=== PATIENT | male | born 1995 | race Caucasian/White ===

== ENCOUNTER 2024-02-07 20:10 | Emergency (ER) | payer SELFPAY ==
[2024-02-07 20:12] VITALS: BP 149/92; PULSE 91; RESP 18; TEMP 36.9; O2SAT 96; BMI 31.1
--- NOTE | 2024-02-07 20:14 | HMH.EDGENADL ---
Discharge Plan Disposition Patient Disposition: Home, Self-Care Condition: Good Prescriptions Prescriptions: New ciprofloxacin HCl [Cipro] 500 mg tablet 500 mg PO BID Qty: 20 0RF metronidazole 500 mg tablet 500 mg PO BID 10 Days Qty: 20 0RF prednisone 50 mg tablet 50 mg PO DAILY 5 Days Qty: 5 0RF No Action albuterol 90 mcg/actuation Aerosol 2 mcg INHALATION Q6H PRN (Reason: Wheezing) Referrals Follow up/Referrals: Yanet Hartmann MD [Physician] - See instructions Provider,MD Samanta [Primary Care Provider] - See instructions Activity Restrictions/Add. Instructions Additional Instructions/Restrictions: Return if have any increasing signs or symptoms increasing pain fever blood per rectum. I referred you to gastroenterology. Clinical Impressions Clinical Impression: Abdominal pain, acute, Enterocolitis Stand Alone Forms Stand Alone Forms: Work/School Release Discharge ED Provider: Himanshu Caballero General Adult HPI <COBY Baird - Last Filed: 02/07/24 22:23> General Chief complaint: Abdominal Pain Stated complaint: abd pain Time Seen by Provider: 02/07/24 20:13 History of Present Illness HPI narrative: Patient presents for evaluation of abdominal pain. Patient patient reports a several month history of watery diarrhea however in the last 3 days he has had increasing pain along with nausea no vomiting and multiple loose stools per day that he describes as watery.. Patient has no specific gastrointestinal diagnoses but does have a diagnosis of eczema and asthma. He has a grandmother has a history of irritable bowel syndrome. He denies chest pain fever chills hemoptysis hematochezia melena hematemesis hematuria. Related Data Home Medications Medication Instructions Recorded Confirmed albuterol 90 mcg/actuation aerosol 2 mcg inhalation Q6H PRN Wheezing 02/07/24 02/07/24 inhaler Previous Rx's Medication Instructions Recorded ciprofloxacin HCl 500 mg tablet 500 mg PO BID #20 tabs 02/07/24 (Cipro) metronidazole 500 mg tablet 500 mg PO BID 10 days #20 tabs 02/07/24 prednisone 50 mg tablet 50 mg PO DAILY 5 days #5 tabs 02/07/24 Allergies Allergy/AdvReac Type Severity Reaction Status Date / Time egg Allergy Verified 02/07/24 20:34 PFSH <COBY Baird - Last Filed: 02/07/24 22:23> PFSH Disclaimer: The information contained in this section may have been updated after the patient was seen, as this information can be updated by other users. Social History (Updated 02/07/24 @ 22:23 by COBY Baird) Smoking Status: Former smoker alcohol intake: never current occupational status: employed Travel in the last 8 weeks: None <COBY Baird - Last Filed: 02/07/24 22:23> ROS Obtained: Yes Systems reviewed as appropriate & no additional complaints except as documented Physical Exam <COBY Baird - Last Filed: 02/07/24 22:23> General General appearance: alert and in no apparent distress Head Head exam: atraumatic and normal inspection Eye Eye exam: Present normal appearance, PERRL and EOMI ENT ENT exam: Present normal exam, normal oropharynx and mucous membranes moist Neck Neck exam: Present normal inspection, full ROM and trachea midline; Absent lymphadenopathy Chest Chest inspection: Present normal inspection and symmetric chest wall rise Respiratory Respiratory exam: Present normal lung sounds bilaterally; Absent accessory muscle use Cardiovascular Cardiovascular exam: Present regular rate, normal rhythm, normal heart sounds, +S1 and +S2 Abdominal Exam Abdominal exam: Present soft, tenderness (Diffuse nonfocal) and hyperactive bowel sounds; Absent guarding or rebound Extremities Exam Extremities exam: Present normal inspection and full ROM Neurological Exam Neurological exam: Present alert, oriented X3 and CN II-XII intact Psychiatric Psychiatric exam: Present normal affect and normal mood Skin Skin exam: Present warm, dry and normal color Lymphatic Lymphatic Findings: no adenopathy Medical Decision Making <COBY Baird - Last Filed: 02/07/24 22:23> Medical Records Medical records reviewed: Yes I reviewed the patient's medical records. Heldre Inquiry Pt receiving controlled substance: No Vital Signs: 02/07/24 20:12 02/07/24 22:36 Temperature 98.4 F 98.1 F Temperature Source Oral Oral Pulse Rate 88 Pulse Rate [Left Radial] 91 H Respiratory Rate 18 18 Blood Pressure 138/84 Blood Pressure [Right Arm] 149/92 H Blood Pressure Mean [Right Arm] 111 Blood Pressure Source [Right Arm] Automatic Cuff Blood Pressure Position [Right Arm] Sitting 02 Sat by Pulse Oximetry 96 Oxygen Delivery Method Room Air Room Air Lab Data Lab results reviewed: Yes I reviewed the patient's lab results. Lab Results 02/07/24 20:40: WBC 6.6, RBC 5.87, Hgb 16.6, Hct 50.5, MCV 86.1, MCH 28.2, MCHC 32.8, RDW 14.3, Plt Count 282, MPV 8.1, Neut % (Auto) 67.3, Lymph % (Auto) 17.7, [place] % (Auto) 8.8, Eos % (Auto) 5.5, Baso % (Auto) 0.7, Neut # (Auto) 4.4, Lymph # (Auto) 1.2, [place] # (Auto) 0.6, Eos # (Auto) 0.4, Baso # (Auto) 0.1, PT 10.5, INR 0.97, Sodium 139, Potassium 4.2, Chloride 106, Carbon Dioxide 24, Anion Gap 13.2, BUN 12, Creatinine 1.10, Estimated Creat Clear 134, Estimated GFR 81, Est GFR ( Amer) 98, Glucose 92, Lactate 1.1, Calcium 9.7, Magnesium 2.0, Total Bilirubin 0.5, AST 34, ALT 32, Alkaline Phosphatase 56, C-Reactive Protein 4.2 H, Total Protein 7.5, Albumin 4.6, Globulin 2.9, Albumin/Globulin Ratio 1.6, Lipase 88 02/07/24 21:43: Urine Color Yellow, Urine Appearance Clear, Urine pH 6.5, Ur Specific [place] 1.025, Urine Protein Negative, Urine Glucose (UA) Negative, Urine Ketones Negative, Urine Blood Negative, Urine Nitrate Negative, Urine Bilirubin Negative, Urine Urobilinogen 0.2, Ur Leukocyte Esterase Negative, Urine RBC 5-10, Urine WBC 3-5, Ur Squamous Epith Cells 3-5, Urine Bacteria 1+, Urine Mucus 2+ 02/07/24 20:40 02/07/24 20:40 Orders (Tests/Meds): ED MEDICATIONS Discontinued Medications Generic Name Dose Route Start Last Admin Trade Name Joseq PRN Reason Stop Dose Admin Acetaminophen 1,000 mg 02/07/24 20:23 02/07/24 20:44 Acetaminophen 1,000mg/100ml Vial IV 02/07/24 20:24 1,000 mg ONCE ONE Administration Dexamethasone Sodium Phosphate 10 mg 02/07/24 20:23 02/07/24 20:44 Dexamethasone 4mg/Ml 5ml Mdv IV 02/07/24 20:24 10 mg ONCE ONE Administration Lactated Ringer's 1,000 mls @ 999 mls/hr 02/07/24 20:23 02/07/24 20:44 Lactated Ringer's 1000 Ml Bag IV 02/07/24 21:23 999 mls/hr .Q1H1M ONE Administration Ketorolac Tromethamine 15 mg 02/07/24 20:23 02/07/24 20:44 Ketorolac 30mg/Ml Vial IV 02/07/24 20:24 15 mg ONCE ONE Administration Levofloxacin 500 mg 02/07/24 22:08 02/07/24 22:22 Levofloxacin 500mg Tab PO 02/07/24 22:09 500 mg ONCE ONE Administration Metronidazole 500 mg 02/07/24 22:08 02/07/24 22:22 Metronidazole 500 Mg Tablet PO 02/07/24 22:09 500 mg ONCE ONE Administration Prednisone 50 mg 02/07/24 22:30 Prednisone 10mg Tab PO 02/07/24 22:31 ONCE ONE Prednisone 60 mg 02/07/24 22:29 02/07/24 22:32 Prednisone 20mg Tab PO 02/07/24 22:30 60 mg ONCE ONE Administration ORDERS Category Date Time Status CT abdomen pelvis wo con Stat Cat Scan 02/07/24 21:08 Completed CBC w/Auto Diff [Complete Blood Count Auto Diff] Stat Lab 02/07/24 20:40 Completed CMP [Comprehensive Metabolic Panel] Stat Lab 02/07/24 20:40 Completed CRP [C-Reactive Protein] Stat Lab 02/07/24 20:40 Completed INR [Prothrombin Time INR] Stat Lab 02/07/24 20:40 Completed Lactic Acid Stat Lab 02/07/24 20:40 Completed Lipase Stat Lab 02/07/24 20:40 Completed Magnesium Stat Lab 02/07/24 20:40 Completed UA [Urinalysis and Microscopic] Stat Lab 02/07/24 21:43 Completed Medical Decision Narrative: In summary patient is a 28-year-old male who presents to the emergency department for evaluation of abdominal pain and watery diarrhea. Patient is hemodynamically stable upon arrival, febrile. Physical exam is remarkable for diffuse mildly tender abdomen to palpation with hyperactive bowel sounds and no rebound or guarding or rigidity.. Differential diagnosis includes acute gastroenteritis inflammatory bowel disease bowel obstruction etc. Initial workup will be conducted with hematologic labs CT scan abdomen pelvis diarrhea panel. Initial interventions include crystalloid bolus Toradol Tylenol Decadron. Initial workup reviewed by me shows a normal white count and elevated CRP and the remainder of his laboratory vesication's are nonactionable. On formal interpretation of his CT scan of the abdomen noncontrast shows enterocolitis however inflammatory bowel diseases not ruled out. Upon repeat evaluation patient had moderate resolution of the symptoms however he has not had a diarrhea stool while in the ER.. Given this patient is appropriate for discharge with a prescription for Cipro and Flagyl referred to gastroenterology. Patient to follow-up with PCP for any worsening signs or symptoms or return to the ER as needed <Himanshu Caballero MD - Last Filed: 02/07/24 23:32> Vital Signs: 02/07/24 20:12 02/07/24 22:36 Temperature 98.4 F 98.1 F Temperature Source Oral Oral Pulse Rate 88 Pulse Rate [Left Radial] 91 H Respiratory Rate 18 18 Blood Pressure 138/84 Blood Pressure [Right Arm] 149/92 H Blood Pressure Mean [Right Arm] 111 Blood Pressure Source [Right Arm] Automatic Cuff Blood Pressure Position [Right Arm] Sitting 02 Sat by Pulse Oximetry 96 Oxygen Delivery Method Room Air Room Air Lab Data Lab Results 02/07/24 20:40: WBC 6.6, RBC 5.87, Hgb 16.6, Hct 50.5, MCV 86.1, MCH 28.2, MCHC 32.8, RDW 14.3, Plt Count 282, MPV 8.1, Neut % (Auto) 67.3, Lymph % (Auto) 17.7, [place] % (Auto) 8.8, Eos % (Auto) 5.5, Baso % (Auto) 0.7, Neut # (Auto) 4.4, Lymph # (Auto) 1.2, [place] # (Auto) 0.6, Eos # (Auto) 0.4, Baso # (Auto) 0.1, PT 10.5, INR 0.97, Sodium 139, Potassium 4.2, Chloride 106, Carbon Dioxide 24, Anion Gap 13.2, BUN 12, Creatinine 1.10, Estimated Creat Clear 134, Estimated GFR 81, Est GFR ( Amer) 98, Glucose 92, Lactate 1.1, Calcium 9.7, Magnesium 2.0, Total Bilirubin 0.5, AST 34, ALT 32, Alkaline Phosphatase 56, C-Reactive Protein 4.2 H, Total Protein 7.5, Albumin 4.6, Globulin 2.9, Albumin/Globulin Ratio 1.6, Lipase 88 02/07/24 21:43: Urine Color Yellow, Urine Appearance Clear, Urine pH 6.5, Ur Specific [place] 1.025, Urine Protein Negative, Urine Glucose (UA) Negative, Urine Ketones Negative, Urine Blood Negative, Urine Nitrate Negative, Urine Bilirubin Negative, Urine Urobilinogen 0.2, Ur Leukocyte Esterase Negative, Urine RBC 5-10, Urine WBC 3-5, Ur Squamous Epith Cells 3-5, Urine Bacteria 1+, Urine Mucus 2+ Orders (Tests/Meds): ED MEDICATIONS Discontinued Medications Generic Name Dose Route Start Last Admin Trade Name Freq PRN Reason Stop Dose Admin Acetaminophen 1,000 mg 02/07/24 20:23 02/07/24 20:44 Acetaminophen 1,000mg/100ml Vial IV 02/07/24 20:24 1,000 mg ONCE ONE Administration Dexamethasone Sodium Phosphate 10 mg 02/07/24 20:23 02/07/24 20:44 Dexamethasone 4mg/Ml 5ml Mdv IV 02/07/24 20:24 10 mg ONCE ONE Administration Lactated Ringer's 1,000 mls @ 999 mls/hr 02/07/24 20:23 02/07/24 20:44 Lactated Ringer's 1000 Ml Bag IV 02/07/24 21:23 999 mls/hr .Q1H1M ONE Administration Ketorolac Tromethamine 15 mg 02/07/24 20:23 02/07/24 20:44 Ketorolac 30mg/Ml Vial IV 02/07/24 20:24 15 mg ONCE ONE Administration Levofloxacin 500 mg 02/07/24 22:08 02/07/24 22:22 Levofloxacin 500mg Tab PO 02/07/24 22:09 500 mg ONCE ONE Administration Metronidazole 500 mg 02/07/24 22:08 02/07/24 22:22 Metronidazole 500 Mg Tablet PO 02/07/24 22:09 500 mg ONCE ONE Administration Prednisone 50 mg 02/07/24 22:30 Prednisone 10mg Tab PO 02/07/24 22:31 ONCE ONE Prednisone 60 mg 02/07/24 22:29 05/01/24 22:32 Prednisone 20mg Tab PO 02/07/24 22:30 60 mg ONCE ONE Administration ORDERS Category Date Time Status CT abdomen pelvis wo con Stat Cat Scan 02/07/24 21:08 Completed CBC w/Auto Diff [Complete Blood Count Auto Diff] Stat Lab 02/07/24 20:40 Completed CMP [Comprehensive Metabolic Panel] Stat Lab 02/07/24 20:40 Completed CRP [C-Reactive Protein] Stat Lab 02/07/24 20:40 Completed INR [Prothrombin Time INR] Stat Lab 02/07/24 20:40 Completed Lactic Acid Stat Lab 02/07/24 20:40 Completed Lipase Stat Lab 02/07/24 20:40 Completed Magnesium Stat Lab 02/07/24 20:40 Completed UA [Urinalysis and Microscopic] Stat Lab 02/07/24 21:43 Completed Medical Decision Narrative: In summary patient is a 28-year-old male who presents to the emergency department for evaluation of abdominal pain and watery diarrhea. Patient is hemodynamically stable upon arrival, febrile. Physical exam is remarkable for diffuse mildly tender abdomen to palpation with hyperactive bowel sounds and no rebound or guarding or rigidity.. Differential diagnosis includes acute gastroenteritis inflammatory bowel disease bowel obstruction etc. Initial workup will be conducted with hematologic labs CT scan abdomen pelvis diarrhea panel. Initial interventions include crystalloid bolus Toradol Tylenol Decadron. Initial workup reviewed by me shows a normal white count and elevated CRP and the remainder of his laboratory vesication's are nonactionable. On formal interpretation of his CT scan of the abdomen noncontrast shows enterocolitis however inflammatory bowel diseases not ruled out. Upon repeat evaluation patient had moderate resolution of the symptoms however he has not had a diarrhea stool while in the ER.. Given this patient is appropriate for discharge with a prescription for Cipro and Flagyl referred to gastroenterology. Patient to follow-up with PCP for any worsening signs or symptoms or return to the ER as needed. Because patient at baseline without signs or symptoms of clinical decompensation, deemed appropriate for discharge. Results were relayed to patient who voiced understanding and were agreeable to outpatient management and follow up. I discussed my clinical impression with patient and answered all questions. At this time, the evidence for any other entities in the differential is insufficient to warrant any further testing or ED observation. This was explained as well. Advisory was given that persistent or worsening symptoms require further evaluation. I confirmed the understanding of this discussion. I was consulted by the JANET, and we discussed the complexity of the problems being addressed. I approved the treatment and management plan for this patient?s care in the Emergency Department, thus performing a substantive portion of the medical decision making. Himanshu Caballero MD Critical Care <COBY Baird - Last Filed: 02/07/24 22:23> Critical Care Time Critical Care Time: No
[2024-02-07] MEDS: ACETAMINOPHEN 1,000MG/100ML VIAL 1000 MG IV (20:44)
[2024-02-07] MEDS: DEXAMETHASONE 4MG/ML 5ML MDV 10 MG IV (20:44)
[2024-02-07] MEDS: KETOROLAC 30MG/ML VIAL 15 MG IV (20:44)
[2024-02-07] MEDS: LACTATED RINGERS 1000ML 1,000 ML 999 ML IV (20:44)
[2024-02-07 20:55] LABS: Basophils # 0.1 K/mm3 (0-0.2); Basophils % 0.7 % (0.1-2.0); Eosinophils # 0.4 K/mm3 (0.0-0.4); Eosinophils % 5.5 % (0.1-12.0); Hematocrit 50.5 % (42.0-52.0); Hemoglobin 16.6 g/dL (14.1-18.0); Lymphocytes # 1.2 K/mm3 (0.7-4.5); Lymphocytes % 17.7 % (10-50); Mean Corpuscular HGB Conc 32.8 g/dL (31.8-35.4); Mean Corpuscular Hemoglobin 28.2 pg (27.0-31.2); Mean Corpuscular Volume 86.1 fl (80-94); Mean Platelet Volume 8.1 fl (7.4-10.4); Monocytes # 0.6 K/mm3 (0.1-1.0); Monocytes % 8.8 % (1.7-9.3); Neutrophils # 4.4 K/mm3 (1.8-7.8); Neutrophils % 67.3 % (37.0-80.0); Platelet Count 282 K/mm3 (142-424); Red Blood Count 5.87 M/mm3 (4.60-6.20); Red Cell Distribution Width 14.3 % (11.5-17.5); White Blood Count 6.6 K/mm3 (4.8-10.8)
[2024-02-07 21:04] LABS: INR 0.97 (0.9-1.1); Prothrombin Time 10.5 seconds (10.1-12.5)
--- NOTE | 2024-02-07 21:08 | CT_ITS ---
PROCEDURE INFORMATION: Exam: CT Abdomen And Pelvis Without Contrast Exam date and time: 02/07/2024 9:14 PM Age: 28 years old Clinical indication: Abdominal pain; Additional info: Abd pain ruq and llq, anaphjylaxis to contrast TECHNIQUE: Imaging protocol: Computed tomography of the abdomen and pelvis without contrast. Radiation optimization: All CT scans at this facility use at least one of these dose optimization techniques: automated exposure control; mA and/or kV adjustment per patient size (includes targeted exams where dose is matched to clinical indication); or iterative reconstruction. COMPARISON: No relevant prior studies available. FINDINGS: Liver: Normal. No mass. Gallbladder and bile ducts: Normal. No calcified stones. No ductal dilation. Pancreas: Normal. No ductal dilation. Spleen: Normal. No splenomegaly. Adrenal glands: Normal. No mass. Kidneys and ureters: Normal. No hydronephrosis. Stomach and bowel: The majority of the colon is collapsed, which is a nonspecific appearance that can correlate with colitis in the appropriate clinical setting. There is mild nonspecific bowel wall thickening of portions of small bowel. Appendix: Unremarkable appendix. Intraperitoneal space: Unremarkable. No free air. No significant fluid collection. Vasculature: Unremarkable. No abdominal aortic aneurysm. Lymph nodes: Unremarkable. No enlarged lymph nodes. Urinary bladder: Unremarkable as visualized. Reproductive: Unremarkable as visualized. Bones/joints: Unremarkable. No acute fracture. Soft tissues: Tiny fat containing umbilical hernia. IMPRESSION: Findings most likely represent enterocolitis.
[2024-02-07 21:10] LABS: Alanine Aminotransferase 32 U/L (12-78); Albumin Level 4.6 g/dl (3.5-5.0); Albumin/Globulin Ratio 1.6 (1.1-1.8); Alkaline Phosphatase 56 U/L (38-126); Anion Gap 13.2 mEq/L (5-15); Aspartate Amino Transferase 34 U/L (17-59); Bilirubin,Total 0.5 mg/dl (0.2-1.3); Blood Urea Nitrogen 12 mg/dl (9-20); Calcium 9.7 mg/dl (8.4-10.2); Carbon Dioxide 24 mmol/L (22.0-30.0); Chloride 106 mmol/L (98-107); Creatinine Clearance Estimated 134 mL/min (50-200); Estimated Glomerular Filt Rate 81 ml/min (>60); GFR (African American) 98 ML/MIN (>60); Globulin 2.9 g/dL (1.3-3.2); Glucose 92 mg/dl (74-100); Potassium 4.2 mmoL/L (3.5-5.1); Sodium 139 mmol/L (136-145); Total Protein,Serum 7.5 g/dl (6.3-8.2)
[2024-02-07 21:11] LABS: Lactic Acid 1.1 mmol/L (0.7-2.1); Lipase 88 U/L (23-300)
[2024-02-07 21:15] LABS: C-Reactive Protein 4.2 mg/L (0-4)
[2024-02-07 21:53] LABS: Microscopic, Urine URINE MICROSCOPIC (MICROSCOPIC)
[2024-02-07 21:54] LABS: Appearance,Urine CLEAR (Clear); Bilirubin,Urine Negative (Negative); Blood, Urine Negative (Negative); Color,Urine YELLOW (Yellow); Glucose,Urine (UA) Negative (Negative); Ketones,Urine Negative (Negative); Leukocyte Esterase,Urine Negative (Negative); Nitrate,Urine Negative (Negative); PH,Urine 6.5 (5.0-8.5); Protein,Urine Negative (Negative); Specific Gravity, Urine 1.025 (1.005-1.030); Urobilinogen,Urine 0.2 EU/dl (0.2)
[2024-02-07 22:20] LABS: Bacteria,Urine 1+ /lpf; Mucus,Urine 2+ /lpf
[2024-02-07] MEDS: metroNIDAZOLE 500 MG TABLET PO (22:22)
[2024-02-07] MEDS: levoFLOXacin 500MG TAB 500 MG PO (22:22)
[2024-02-07] MEDS: predniSONE 20MG TAB 60 MG PO (22:32)
[2024-02-07 22:36] VITALS: BP 138/84; PULSE 88; RESP 18; TEMP 36.7; O2SAT 99
--- NOTE | 2024-02-08 14:24 | PC.NURSE ---
Pt's mother called stating pt's prescriptions were never received by [facility] . In the chart, it shows that it was sent electronically to [facility] in [place]. Mother reports she would like the scripts transferred to [facility] in [place]. I transferred the script electronically to [facility].
== END 2024-02-07 22:38 | disposition home or self-care (01) ==
PROVIDERS: Physician Assistant; Emergency Provider Emergency Medicine
DX: R10.84 Generalized abdominal pain (principal); K52.9 Noninfective gastroenteritis and colitis, unspecified
CPT/HCPCS: 74176; 80053; 81001; 83605; 83690; 83735; 85025; 85610; 86140; 96361; 96374; 96375; 99285; J0131